=== PATIENT | male | born 1980 | race Caucasian/White ===

== ENCOUNTER 2022-06-01 09:42 | Emergency (ER) | payer SELFPAY | END 2022-06-01 10:39 | disposition left against medical advice (07) | LOC: MW.ED 09:42 | DX: Z53.21 Procedure and treatment not carried out due to patient leaving prior to being seen by health care provider (principal) ==

== ENCOUNTER 2022-06-01 14:04 | Emergency (ER) | payer SELFPAY ==
[2022-06-01 15:22] LABS: CORONAVIRUS COVID-19 NAA POSITIVE (NEGATIVE); INFLUENZA A NAA NEGATIVE (NEGATIVE); INFLUENZA B NAA NEGATIVE (NEGATIVE)
== END 2022-06-01 15:47 | disposition home or self-care (01) ==
LOC: MW.ED 14:04
DX: U07.1 COVID-19 (principal); J01.90 Acute sinusitis, unspecified
CPT/HCPCS: 0240U; 99283